=== PATIENT | female | born 1990 | race Caucasian/White ===

== ENCOUNTER → 2017-05-23 | Outpatient (CLI) | payer BC ==
[~2017-05-23] MED LIST: BARIUM SULFATE 600 ML SUSP ONE; DOXY-252 PO; HYOS0.128 PO; IBUP200C71 PO; LOR5/325 PO; ONDA4TAB PO
--- NOTE | 2017-05-23 13:49 | RADIOLOGY IMAGING REPORT ---
[place] [facility] [place] NAME: Kelsey Simmons : 1990 MR: [id number] V: [id number] EXAM DATE: ORDERING PHYSICIAN: JOY PHILIP TECHNOLOGIST: Location: [facility] - [place] Patient: Kelsey Simmons : 1990 Visit/Account:[id number] Date of Sevice: 05/23/2017 SMALL BOWEL SERIES HISTORY: Abdominal pain. Irritable bowel syndrome. COMPARISON: CT abdomen and pelvis 12/13/2013 PROCEDURE: A product mgmt dev manager abdominal radiograph was obtained. This was followed by oral administration of th in barium, and a series of abdominal radiographs until the barium migrated from the stomach to the co gianni. The terminal ileum was assessed under fluoroscopy by the radiologist. FINDINGS: Air Quality Manager radiograph: Average bowel gas pattern. Small bowel transit time is 45 minutes. Small bowel is uniform in size, and without focal thickening , stricture, or mass effect. The terminal ileum appears normal. The ileocecal junction is located i n the right lower abdominal quadrant at the level of the right iliac crest. IMPRESSION: Normal small bowel follow-through. Fluoroscopy time: 0.6 minute DAP: 326.05 [id number] Report Dictated By: Bebe Collazo MD at 05/23/2017 1:37 PM Report E-Signed By: Bebe Collazo MD at 05/23/2017 1:45 PM WSN:[email or web address]
== END ==
LOC: RAD 02:55
PROVIDERS: ATTEND Surgery
DX: R10.9 Unspecified abdominal pain (principal); K58.9 Irritable bowel syndrome, unspecified
CPT/HCPCS: 74250